=== PATIENT | female | born 1930 | race Two or more races ===

== ENCOUNTER 2019-04-05 19:25 | Inpatient (IN) | payer MEDICARE, OTHER ==
[~2019-04-05] VITALS: Ht 154.9 cm; Wt 70.3 kg
[2019-04-05] MEDS ORDERED: ACET-2154 PO (20:07)
[2019-04-05] MEDS ORDERED: GABA-534 PO (20:07)
[2019-04-05] MEDS ORDERED: HYOS0.1275 SL (20:07)
[2019-04-05] MEDS ORDERED: FURO40TA5 PO (20:07)
[2019-04-05] MEDS ORDERED: IPRA12.9 NEB (20:07)
[2019-04-05] MEDS ORDERED: PRAM0.253 PO (20:07)
[2019-04-05] MEDS ORDERED: TOPI50TA24 PO (20:07)
[2019-04-05] MEDS ORDERED: TOPI100T38 PO (20:07)
[2019-04-05 20:27] VITALS: BP 140/65
[2019-04-05] MEDS ORDERED: PRAMIPEXOLE 0.25 MG TABLET PO SCH (21:00)
[2019-04-05] MEDS ORDERED: HYOSCYAMINE SULFATE 0.125 MG TABLET SL PRN (21:00)
[2019-04-05] MEDS ORDERED: ACETAMINOPHEN 325 MG TABLET PO PRN (21:00)
[2019-04-05] MEDS: TOPIRAMATE 100 MG TABLET PO SCH (21:11)
[2019-04-05] MEDS: PRAMIPEXOLE 1 MG TABLET PO SCH (21:11)
--- NOTE | 2019-04-05 23:48 | NUR ---
Pt arrived in the unit at 1935 via gurney. Family at bedside. On 3L O2 via NC. No acute distress noted. Denies pain/ discomfort. Pertinent assessment done. MRSA swab sent to the lab. Oriented pt to the unit and equipment. Dr. Allyson Webb and Dr. Dawn notified of admission. Med recon done. Pt's family has concerns regarding home meds, MD Webb aware and will see pt tomorrow. Pt is on fall and seizure precaution. Safety measures maintained. Call light and personal items within reach. Will continue to monitor.
[2019-04-06] MEDS: IPRATROPIUM BROMIDE 0.5 MG/2.5 ML NEBU NEB SCH ×4 (01:09→20:07)
[2019-04-06 04:55] VITALS: BP 126/66
[2019-04-06 08:01] VITALS: BP 127/58
[2019-04-06] MEDS ORDERED: LOSARTAN POTASSIUM 25 MG TABLET PO SCH (09:00)
[2019-04-06] MEDS ORDERED: FUROSEMIDE 40 MG TABLET PO SCH ×2 (09:00→09:40)
[2019-04-06] MEDS: TOPIRAMATE 25 MG TABLET PO SCH (09:38)
[2019-04-06] MEDS: GABAPENTIN 300 MG CAPSULE PO SCH ×3 (09:38→16:38)
[2019-04-06] MEDS: FOLIC ACID 1 MG TABLET PO SCH (09:56)
[2019-04-06] MEDS: ESCITALOPRAM OXALATE 10 MG TABLET PO SCH (09:56)
[2019-04-06] MEDS: LIPASE/PROTEASE/AMYLASE 4200 UNITS CAPSULE.DR PO SCH ×2 (11:38→16:38)
[2019-04-06] MEDS: GABAPENTIN 100 MG CAPSULE PO SCH ×4 (11:38→20:19)
[2019-04-06] MEDS: FLUTICASONE PROP NASAL SPRAY 16 GM BOTTLE NS SCH (13:10)
--- NOTE | 2019-04-06 14:41 | NUR ---
Patient started therapy for ambulation and ADL. no complaint of pain/discomfort noted. Seen and examined by MD Macias. Med recon done by . not in distress. will continue monitor
[2019-04-06 15:42] VITALS: BP 123/73
[2019-04-06] MEDS: PHENOBARBITAL 32.4 MG TABLET PO SCH (20:18)
[2019-04-06] MEDS: PRAMIPEXOLE 1 MG TABLET PO SCH (20:18)
[2019-04-06] MEDS: BIMATOPROST 0.01% EACHEYE SCH (20:18)
[2019-04-06] MEDS: LOSARTAN POTASSIUM 25 MG TABLET PO SCH (20:19)
[2019-04-06] MEDS: TOPIRAMATE 100 MG TABLET PO SCH (20:19)
[2019-04-06 20:36] VITALS: BP 133/59
--- NOTE | 2019-04-06 20:41 | NUR ---
Received pt resting in bed. AAO x3. Farsi speaking, able to make needs known. No acute distress noted. Denies pain/ discomfort. Due meds given as ordered. Received breathing tx. Safety measures maintained. Call light and personal items within reach. Will continue to monitor.
[2019-04-07] MEDS: IPRATROPIUM BROMIDE 0.5 MG/2.5 ML NEBU NEB SCH ×4 (01:10→19:00)
[2019-04-07 05:38] VITALS: BP 119/70
[2019-04-07] MEDS: PANTOPRAZOLE SODIUM 40 MG TABLET.DR PO SCH (06:12)
[2019-04-07] MEDS: LEVOTHYROXINE SODIUM 50 MCG TABLET PO SCH (06:12)
[2019-04-07 07:44] VITALS: BP 125/54
[2019-04-07] MEDS: FOLIC ACID 1 MG TABLET PO SCH (08:22)
[2019-04-07] MEDS: GABAPENTIN 300 MG CAPSULE PO SCH ×3 (08:23→17:04)
[2019-04-07] MEDS: ESCITALOPRAM OXALATE 10 MG TABLET PO SCH (08:23)
[2019-04-07] MEDS: TOPIRAMATE 25 MG TABLET PO SCH (08:23)
[2019-04-07] MEDS: LIPASE/PROTEASE/AMYLASE 4200 UNITS CAPSULE.DR PO SCH ×3 (08:24→17:04)
[2019-04-07] MEDS: LOSARTAN POTASSIUM 25 MG TABLET PO SCH ×2 (08:25→20:11)
[2019-04-07] MEDS: GABAPENTIN 100 MG CAPSULE PO SCH ×4 (08:28→20:11)
[2019-04-07] MEDS: FLUTICASONE PROP NASAL SPRAY 16 GM BOTTLE NS SCH (08:28)
[2019-04-07 16:29] VITALS: BP 121/62
--- NOTE | 2019-04-07 18:53 | NUR ---
Patient is A & O x 3; Farsi speaking. No SOB noted. Pt. on O2 NC at 1LPM with O2 saturation of 97%. Vital signs taken and stable. No complains of pain throughout shift. Pt. on routine breathing treatment. Due medications administered as ordered and scheduled and tolerated well. Continued with PT/OT services. Needs attended, safety measurers in place, call light left at bed side, endorsed to next shift and will continue with care.
--- NOTE | 2019-04-07 19:30 | NUR ---
Alert and oriented x 4. Farsi speaking primarily, but able to make needs known in Portuguese. No C/O pain or SOB at this time. Family at bedside upon assessment. Call light and frequently used items within reach. Side rails up bilaterally. Will continue to monitor.
[2019-04-07] MEDS: BIMATOPROST 0.01% EACHEYE SCH (20:11)
[2019-04-07] MEDS: TOPIRAMATE 100 MG TABLET PO SCH (20:11)
[2019-04-07] MEDS: PRAMIPEXOLE 1 MG TABLET PO SCH (20:11)
[2019-04-07] MEDS: PHENOBARBITAL 32.4 MG TABLET PO SCH (20:11)
[2019-04-07 20:42] VITALS: BP 102/70
[2019-04-08] MEDS: IPRATROPIUM BROMIDE 0.5 MG/2.5 ML NEBU NEB SCH ×4 (00:33→21:28)
[2019-04-08 05:28] VITALS: BP 108/54
[2019-04-08] MEDS: LEVOTHYROXINE SODIUM 50 MCG TABLET PO SCH (06:00)
[2019-04-08] MEDS: PANTOPRAZOLE SODIUM 40 MG TABLET.DR PO SCH (06:00)
[2019-04-08] MEDS: LIPASE/PROTEASE/AMYLASE 4200 UNITS CAPSULE.DR PO SCH ×3 (06:32→17:03)
[2019-04-08 07:50] VITALS: BP 134/54
[2019-04-08] MEDS: TOPIRAMATE 25 MG TABLET PO SCH (09:24)
[2019-04-08] MEDS: GABAPENTIN 100 MG CAPSULE PO SCH ×4 (09:24→20:19)
[2019-04-08] MEDS: GABAPENTIN 300 MG CAPSULE PO SCH ×3 (09:24→17:04)
[2019-04-08] MEDS: LOSARTAN POTASSIUM 25 MG TABLET PO SCH ×2 (09:25→20:20)
[2019-04-08] MEDS: FUROSEMIDE 40 MG TABLET PO SCH (09:25)
[2019-04-08] MEDS: FOLIC ACID 1 MG TABLET PO SCH (09:25)
[2019-04-08] MEDS: ESCITALOPRAM OXALATE 10 MG TABLET PO SCH (09:25)
[2019-04-08] MEDS: FLUTICASONE PROP NASAL SPRAY 16 GM BOTTLE NS SCH (09:26)
--- NOTE | 2019-04-08 10:00 | NUR ---
Received patient in room, awake in bed. NO acute distress noted. Breathing even and unlabored in O2 NC at 1lpm with O2 saturation of 98%. No complains of pain at this time. No new change of condition noted. Vital signs taken and stable. Due medications administered and tolerated well. Daughter at bed side. patient on PT/OT services. Needs attended, safety measures in place and will continue with care.
--- NOTE | 2019-04-08 14:12 | NUR ---
INTERDISCIPLINARY TEAM CONFERENCE
--- NOTE | 2019-04-08 15:31 | NUR ---
INDIVIDUALIZE OVERALL PLAN OF CARE
[2019-04-08 16:34] VITALS: BP 98/50
--- NOTE | 2019-04-08 19:30 | NUR ---
Received patient in bed. AAO x4. Not in acute distress or SOB. Farsi speaking, but can communicate in Swedish. Able to make needs known. On 1 L O2 via NC. No Complain of pain at this time. Physical assessment done. Fall prevention observed. Safety measures maintained. Bed in low and lock position, alarm on, side rails up x2 for safety. Call light and frequently used items within reach. Continue to monitor.
[2019-04-08 19:48] VITALS: BP 130/52
--- NOTE | 2019-04-08 20:15 | NUR ---
Patient stable, No new change of condition noted, needs attended. Endorsed to next shift and will continue with care.
[2019-04-08] MEDS: PRAMIPEXOLE 1 MG TABLET PO SCH (20:19)
[2019-04-08] MEDS: TOPIRAMATE 100 MG TABLET PO SCH (20:19)
[2019-04-08] MEDS: BIMATOPROST 0.01% EACHEYE SCH (20:19)
[2019-04-08] MEDS: PHENOBARBITAL 32.4 MG TABLET PO SCH (20:20)
[2019-04-09] MEDS: IPRATROPIUM BROMIDE 0.5 MG/2.5 ML NEBU NEB SCH ×4 (01:30→21:00)
[2019-04-09 05:15] VITALS: BP 120/68
[2019-04-09 05:28] VITALS: BP 120/68
--- NOTE | 2019-04-09 05:54 | NUR ---
Patient was stable during the shift and had a good sleep last night. Not in acute distress or SOB. On room air. All due medications given as ordered and well tolerated. All needs attended promptly. Physical assessment done. Fall prevention observed. Safety measures maintained. Bed in low and lock position, alarm on, side rails up x2 for safety. Call light and frequently used items within reach. Continue to monitor and will endorse to the day shift nurse accordingly.
[2019-04-09] MEDS: PANTOPRAZOLE SODIUM 40 MG TABLET.DR PO SCH (06:34)
[2019-04-09] MEDS: LIPASE/PROTEASE/AMYLASE 4200 UNITS CAPSULE.DR PO SCH ×3 (06:34→16:57)
[2019-04-09] MEDS: LEVOTHYROXINE SODIUM 50 MCG TABLET PO SCH (06:34)
[2019-04-09 08:00] VITALS: BP 119/54
[2019-04-09] MEDS: GABAPENTIN 300 MG CAPSULE PO SCH ×3 (08:29→17:45)
[2019-04-09] MEDS: FOLIC ACID 1 MG TABLET PO SCH (08:29)
[2019-04-09] MEDS: LOSARTAN POTASSIUM 25 MG TABLET PO SCH ×2 (08:30→21:01)
[2019-04-09] MEDS: ESCITALOPRAM OXALATE 10 MG TABLET PO SCH (08:30)
[2019-04-09] MEDS: FLUTICASONE PROP NASAL SPRAY 16 GM BOTTLE NS SCH (08:30)
[2019-04-09] MEDS: GABAPENTIN 100 MG CAPSULE PO SCH ×4 (08:31→21:01)
[2019-04-09] MEDS: TOPIRAMATE 25 MG TABLET PO SCH (08:31)
--- NOTE | 2019-04-09 11:18 | NUR ---
PATIENT IS ALERT, ORIENTED X3, FARSI SPEAKING, DAUGHTER BEDSIDE, NO DISTRESS NOTED, PATIENT DAUGHTER REQUESTED LEXAPRO TO BE GIVEN AT NIGHT, APPROVED WITH MD, STARTED ON COLACE, AND ARTIFICIAL EYE DROPS.
--- NOTE | 2019-04-09 16:17 | NUR ---
PATIENT IS ALERT, ORIENTED X3, FARSI SPEAKING, NO DISTRESS NOTED, NEEDS ATTENDED TIMELY, REPOSITIONED, KEPT CLEAN DRY. CALL LIGHT WITH IN REACH
[2019-04-09 16:40] VITALS: BP 101/62
[2019-04-09] MEDS: POLYVINYL ALCOHOL OPHT DROPS 15 ML BOTTLE EACHEYE SCH (17:46)
[2019-04-09 19:48] VITALS: BP 123/54
[2019-04-09] MEDS: BIMATOPROST 0.01% EACHEYE SCH (21:00)
[2019-04-09] MEDS: PRAMIPEXOLE 1 MG TABLET PO SCH (21:00)
[2019-04-09] MEDS: DOCUSATE SODIUM 100 MG CAPSULE PO SCH (21:00)
[2019-04-09] MEDS: TOPIRAMATE 100 MG TABLET PO SCH (21:01)
[2019-04-09] MEDS: PHENOBARBITAL 32.4 MG TABLET PO SCH (21:01)
--- NOTE | 2019-04-09 22:43 | NUR ---
Received pt resting in bed. AAO x3. Farsi speaking, able to make needs known. Son at bedside. No acute distress noted. Denies pain/ discomfort. Due meds given as ordered. Safety measures maintained. Call light and personal items within reach. Will continue to monitor.
[2019-04-10] MEDS: IPRATROPIUM BROMIDE 0.5 MG/2.5 ML NEBU NEB SCH ×4 (03:30→20:59)
[2019-04-10 04:40] VITALS: BP 121/41
[2019-04-10 05:47] LABS: BASOPHILS % (AUTO) 0.6 % (0.0-2.0); EOSINOPHILS # (AUTO) 0.1 K/uL (0.0-0.7); EOSINOPHILS % (AUTO) 3.3 % (0.0-7.0); HEMATOCRIT 31.8 % (31.2-41.9); HEMOGLOBIN 10.4 g/dL (10.9-14.3); LYMPHOCYTES # (AUTO) 1.3 K/uL (20.0-40.0); LYMPHOCYTES % (AUTO) 32.5 % (20.5-51.5); MEAN CORPUSCULAR HEMOGLOBIN 29.4 uug (24.7-32.8); MEAN CORPUSCULAR HGB CONC 33 g/dL (32.3-35.6); MEAN CORPUSCULAR VOLUME 90.2 fL (75.5-95.3); MONOCYTES # (AUTO) 0.3 K/uL (2.0-10.0); MONOCYTES % (AUTO) 7.7 % (0.0-11.0); NEUTROPHILS # (AUTO) 2.3 K/uL (1.8-8.9); NEUTROPHILS % (AUTO) 55.9 % (38.5-71.5); PLATELET COUNT (AUTO) 384 K/uL (179-408); RED BLOOD CELL COUNT(AUTO) 3.52 MIL/uL (3.63-4.92)
[2019-04-10 05:54] LABS: BILIRUBIN,TOTAL 0.3 mg/dL (0.2-1.0); CREATININE 0.6 mg/dL (0.6-1.3); MAGNESIUM 1.9 mg/dL (1.8-2.4); PHOSPHOROUS 3.5 mg/dL (2.5-4.9); POTASSIUM 3.8 mmol/L (3.5-5.1); TOTAL PROTEIN, SERUM 6.8 g/dL (6.4-8.2)
[2019-04-10] MEDS: PANTOPRAZOLE SODIUM 40 MG TABLET.DR PO SCH (06:09)
[2019-04-10] MEDS: LEVOTHYROXINE SODIUM 50 MCG TABLET PO SCH (06:09)
[2019-04-10 08:00] VITALS: BP 125/51
[2019-04-10] MEDS: GABAPENTIN 100 MG CAPSULE PO SCH ×4 (08:34→20:14)
[2019-04-10] MEDS: POLYVINYL ALCOHOL OPHT DROPS 15 ML BOTTLE EACHEYE SCH ×2 (08:34→17:23)
[2019-04-10] MEDS: FLUTICASONE PROP NASAL SPRAY 16 GM BOTTLE NS SCH (08:34)
[2019-04-10] MEDS: LORATADINE 10 MG TABLET PO PRN (08:35)
[2019-04-10] MEDS: TOPIRAMATE 25 MG TABLET PO SCH (08:35)
[2019-04-10] MEDS: LIPASE/PROTEASE/AMYLASE 4200 UNITS CAPSULE.DR PO SCH ×3 (08:35→17:23)
[2019-04-10] MEDS: FOLIC ACID 1 MG TABLET PO SCH (08:37)
[2019-04-10] MEDS: FUROSEMIDE 40 MG TABLET PO SCH (08:37)
[2019-04-10] MEDS: LOSARTAN POTASSIUM 25 MG TABLET PO SCH ×2 (08:37→20:15)
[2019-04-10] MEDS: DOCUSATE SODIUM 100 MG CAPSULE PO SCH ×2 (08:38→20:13)
[2019-04-10] MEDS: GABAPENTIN 300 MG CAPSULE PO SCH ×3 (08:38→17:26)
[2019-04-10 17:20] VITALS: BP 98/46
[2019-04-10] MEDS: ESCITALOPRAM OXALATE 10 MG TABLET PO SCH (20:12)
[2019-04-10] MEDS: TOPIRAMATE 100 MG TABLET PO SCH (20:15)
[2019-04-10] MEDS: PRAMIPEXOLE 1 MG TABLET PO SCH (20:15)
[2019-04-10] MEDS: PHENOBARBITAL 32.4 MG TABLET PO SCH (20:15)
[2019-04-10] MEDS: BIMATOPROST 0.01% EACHEYE SCH (20:17)
--- NOTE | 2019-04-10 20:42 | NUR ---
Received pt resting in bed and reading a book. AAO x3. Farsi speaking, able to make needs known. On 1 LPM O2 via NC, tolerating well. No acute distress noted. Denies pain/ discomfort. Due meds given as ordered. Safety measures maintained. Call light and personal items within reach. Will continue to monitor.
[2019-04-10 21:28] VITALS: BP 129/63
[2019-04-11] MEDS: IPRATROPIUM BROMIDE 0.5 MG/2.5 ML NEBU NEB SCH ×4 (01:30→19:32)
[2019-04-11 05:13] VITALS: BP 111/61
[2019-04-11] MEDS: LEVOTHYROXINE SODIUM 50 MCG TABLET PO SCH (06:11)
[2019-04-11] MEDS: PANTOPRAZOLE SODIUM 40 MG TABLET.DR PO SCH (06:11)
[2019-04-11 07:30] VITALS: BP 127/50
[2019-04-11] MEDS: FOLIC ACID 1 MG TABLET PO SCH (09:30)
[2019-04-11] MEDS: GABAPENTIN 300 MG CAPSULE PO SCH ×3 (09:30→16:59)
[2019-04-11] MEDS: LOSARTAN POTASSIUM 25 MG TABLET PO SCH ×2 (09:30→20:21)
[2019-04-11] MEDS: GABAPENTIN 100 MG CAPSULE PO SCH ×4 (09:30→20:21)
[2019-04-11] MEDS: DOCUSATE SODIUM 100 MG CAPSULE PO SCH ×2 (09:30→20:20)
[2019-04-11] MEDS: POLYVINYL ALCOHOL OPHT DROPS 15 ML BOTTLE EACHEYE SCH ×2 (09:31→17:00)
[2019-04-11] MEDS: LIPASE/PROTEASE/AMYLASE 4200 UNITS CAPSULE.DR PO SCH ×3 (09:31→17:00)
[2019-04-11] MEDS: TOPIRAMATE 25 MG TABLET PO SCH (09:32)
[2019-04-11] MEDS: FLUTICASONE PROP NASAL SPRAY 16 GM BOTTLE NS SCH (09:33)
[2019-04-11 16:00] VITALS: BP 144/59
--- NOTE | 2019-04-11 19:35 | NUR ---
Received patient sitting in chair. AAO x4. Not in acute distress or SOB. Farsi speaking, but can communicate in Sami. Her daughter at the bedside. Able to make needs known. On 1 L O2 via NC. No Complain of pain at this time. Physical assessment done. Fall prevention observed. Safety measures maintained. Bed in low and lock position, alarm on, side rails up x2 for safety. Call light and frequently used items within reach. Continue to monitor.
[2019-04-11 20:03] VITALS: BP 121/49
[2019-04-11] MEDS: BIMATOPROST 0.01% EACHEYE SCH (20:20)
[2019-04-11] MEDS: TOPIRAMATE 100 MG TABLET PO SCH (20:21)
[2019-04-11] MEDS: ESCITALOPRAM OXALATE 10 MG TABLET PO SCH (20:21)
[2019-04-11] MEDS: PHENOBARBITAL 32.4 MG TABLET PO SCH (20:22)
[2019-04-11] MEDS: PRAMIPEXOLE 1 MG TABLET PO SCH (20:22)
[2019-04-12] MEDS: IPRATROPIUM BROMIDE 0.5 MG/2.5 ML NEBU NEB SCH ×4 (01:04→19:12)
--- NOTE | 2019-04-12 04:29 | NUR ---
End of the shift note: Patient was stable during the shift and had a good sleep last night. Not in acute distress or SOB. On 1 L O2 via NC. All due medications given as ordered and well tolerated. All needs attended promptly. Physical assessment done. Fall prevention observed. Safety measures maintained. Bed in low and lock position, alarm on, side rails up x2 for safety. Call light and frequently used items within reach. Continue to monitor and will endorse to the day shift nurse accordingly.
[2019-04-12 05:29] VITALS: BP 125/55
[2019-04-12] MEDS: LEVOTHYROXINE SODIUM 50 MCG TABLET PO SCH (06:13)
[2019-04-12] MEDS: PANTOPRAZOLE SODIUM 40 MG TABLET.DR PO SCH (06:13)
[2019-04-12] MEDS: LIPASE/PROTEASE/AMYLASE 4200 UNITS CAPSULE.DR PO SCH ×3 (06:43→17:14)
[2019-04-12] MEDS ORDERED: Z GUARD REMEDY PASTE 57 GM TUBE TOP PRN (07:30)
[2019-04-12 08:56] VITALS: BP 107/50
[2019-04-12] MEDS: LOSARTAN POTASSIUM 25 MG TABLET PO SCH ×2 (09:00→20:36)
[2019-04-12] MEDS: FOLIC ACID 1 MG TABLET PO SCH (09:56)
[2019-04-12] MEDS: DOCUSATE SODIUM 100 MG CAPSULE PO SCH ×2 (09:56→20:36)
[2019-04-12] MEDS: FUROSEMIDE 40 MG TABLET PO SCH (09:57)
[2019-04-12] MEDS: GABAPENTIN 300 MG CAPSULE PO SCH ×3 (09:57→17:13)
[2019-04-12] MEDS: FLUTICASONE PROP NASAL SPRAY 16 GM BOTTLE NS SCH (09:59)
[2019-04-12] MEDS: GABAPENTIN 100 MG CAPSULE PO SCH ×4 (09:59→20:37)
[2019-04-12] MEDS: TOPIRAMATE 25 MG TABLET PO SCH (09:59)
--- NOTE | 2019-04-12 10:00 | NUR ---
Patient awake, alert, not in any form of distress. She denies any pain or discomfort at this time. due medications administered and tolerated well. Needs attended to promptly. Call light and frequently used items placed within reach.
[2019-04-12] MEDS: POLYVINYL ALCOHOL OPHT DROPS 15 ML BOTTLE EACHEYE SCH ×2 (10:16→17:13)
--- NOTE | 2019-04-12 13:30 | NUR ---
NEB TX NOT GIVEN PT OUT OF ROOM
[2019-04-12 16:16] VITALS: BP 136/54
[2019-04-12 20:17] VITALS: BP 126/60
[2019-04-12] MEDS: ESCITALOPRAM OXALATE 10 MG TABLET PO SCH (20:36)
[2019-04-12] MEDS: PHENOBARBITAL 32.4 MG TABLET PO SCH (20:36)
[2019-04-12] MEDS: TOPIRAMATE 100 MG TABLET PO SCH (20:37)
[2019-04-12] MEDS: BIMATOPROST 0.01% EACHEYE SCH (20:37)
[2019-04-12] MEDS: PRAMIPEXOLE 1 MG TABLET PO SCH (20:38)
--- NOTE | 2019-04-12 21:32 | NUR ---
received patient OOB in chair upon initial rounds. AAOx3-4 Needs attended. VSS. On 1L O2 via nasal cannula, pulse ox 91%. Respiratory treatment given by therapist on scheduled times. Assisted back in bed with moderate assistance. Bedtime care done. Incontinent of bowel and bladder. Kept clean and dry. No BM noted this shift. Tolerated po meds well. Fall precautions maintained. Call evangelista within reach. Siderails up for safety.
[2019-04-13] MEDS: IPRATROPIUM BROMIDE 0.5 MG/2.5 ML NEBU NEB SCH ×4 (01:00→20:30)
[2019-04-13 05:18] VITALS: BP 130/69
[2019-04-13] MEDS: LEVOTHYROXINE SODIUM 50 MCG TABLET PO SCH (06:25)
[2019-04-13] MEDS: PANTOPRAZOLE SODIUM 40 MG TABLET.DR PO SCH (06:25)
[2019-04-13] MEDS: LIPASE/PROTEASE/AMYLASE 4200 UNITS CAPSULE.DR PO SCH ×3 (06:31→16:51)
--- NOTE | 2019-04-13 06:46 | NUR ---
slept well most of the shift. denies any pain nor any discomfort. VSS. incontinent of urine x2. kept clean and dry. making needs known. fall precautions maintained.
[2019-04-13 08:00] VITALS: BP 163/63
[2019-04-13] MEDS: FLUTICASONE PROP NASAL SPRAY 16 GM BOTTLE NS SCH (09:45)
[2019-04-13] MEDS: POLYVINYL ALCOHOL OPHT DROPS 15 ML BOTTLE EACHEYE SCH ×2 (09:45→17:07)
[2019-04-13] MEDS: GABAPENTIN 300 MG CAPSULE PO SCH ×3 (09:45→17:07)
[2019-04-13] MEDS: GABAPENTIN 100 MG CAPSULE PO SCH ×4 (09:45→20:47)
[2019-04-13] MEDS: TOPIRAMATE 25 MG TABLET PO SCH (09:45)
[2019-04-13] MEDS: DOCUSATE SODIUM 100 MG CAPSULE PO SCH ×2 (09:46→20:53)
[2019-04-13] MEDS: LOSARTAN POTASSIUM 25 MG TABLET PO SCH ×2 (09:46→20:46)
[2019-04-13] MEDS: FOLIC ACID 1 MG TABLET PO SCH (09:46)
[2019-04-13 16:00] VITALS: BP 137/53
--- NOTE | 2019-04-13 18:09 | NUR ---
Patient is Alert and Oriented x3. Mostly Farsi speaking. No acute distress noted. Breathing even and unlabored. Vital signs taken and stable. Family at bed side for most of the shift. Due medications administered as ordered and scheduled. Tolerated well. Patient in stable condition. No complains of pain throughout shift. Needs attended, safety measures in place, skin kept clean and dry, patient also with BRP with a walker and 1 person assist; made comfortable, call light left at bed side and will continue with care.
--- NOTE | 2019-04-13 19:06 | NUR ---
Patient noted with redness and itchiness on perineal area. Paged lead solutions architect VIP MD Dr. Webb and left a message endorsed to next shift to follow up with care.
[2019-04-13 19:48] VITALS: BP 122/69
--- NOTE | 2019-04-13 19:53 | NUR ---
OOB in chair upon initial rounds. aaox3. Ambulates to the BR with walker with supervision. Needs attended. Voiding well. Uses diaper at night. Assisted back in bed. VSS No acute distress noted. Tolerated po meds well. Denies any pain nor any itching noted. Will monitor patient. Fall precautions maintained. Call evangelista within reach. Siderails up for safety.
[2019-04-13] MEDS: ESCITALOPRAM OXALATE 10 MG TABLET PO SCH (20:45)
[2019-04-13] MEDS: PHENOBARBITAL 32.4 MG TABLET PO SCH (20:45)
[2019-04-13] MEDS: BIMATOPROST 0.01% EACHEYE SCH (20:46)
[2019-04-13] MEDS: PRAMIPEXOLE 1 MG TABLET PO SCH (20:47)
[2019-04-13] MEDS: TOPIRAMATE 100 MG TABLET PO SCH (20:47)
[2019-04-14] MEDS: IPRATROPIUM BROMIDE 0.5 MG/2.5 ML NEBU NEB SCH ×4 (02:05→21:45)
[2019-04-14 05:40] VITALS: BP 105/56
--- NOTE | 2019-04-14 06:31 | NUR ---
slept well during the night. no acute distress noted.needs attended. incontinent of urine x2. kept clean and dry. VSS. will monitor patient.
[2019-04-14] MEDS: PANTOPRAZOLE SODIUM 40 MG TABLET.DR PO SCH (06:43)
[2019-04-14] MEDS: LIPASE/PROTEASE/AMYLASE 4200 UNITS CAPSULE.DR PO SCH ×3 (06:44→16:48)
[2019-04-14] MEDS: LEVOTHYROXINE SODIUM 50 MCG TABLET PO SCH (06:44)
[2019-04-14] MEDS: FOLIC ACID 1 MG TABLET PO SCH (08:42)
[2019-04-14] MEDS: FUROSEMIDE 40 MG TABLET PO SCH (08:42)
[2019-04-14] MEDS: GABAPENTIN 300 MG CAPSULE PO SCH ×3 (08:42→16:47)
[2019-04-14] MEDS: DOCUSATE SODIUM 100 MG CAPSULE PO SCH ×2 (08:42→20:55)
[2019-04-14] MEDS: GABAPENTIN 100 MG CAPSULE PO SCH ×4 (08:43→20:55)
[2019-04-14] MEDS: LORATADINE 10 MG TABLET PO PRN (08:43)
[2019-04-14] MEDS: LOSARTAN POTASSIUM 25 MG TABLET PO SCH ×2 (08:44→20:54)
[2019-04-14] MEDS: TOPIRAMATE 25 MG TABLET PO SCH (08:44)
[2019-04-14] MEDS: FLUTICASONE PROP NASAL SPRAY 16 GM BOTTLE NS SCH (08:45)
[2019-04-14] MEDS: POLYVINYL ALCOHOL OPHT DROPS 15 ML BOTTLE EACHEYE SCH ×2 (08:45→16:49)
[2019-04-14 11:45] VITALS: BP 128/68
--- NOTE | 2019-04-14 14:32 | NUR ---
PATIENT AND PATIENT DAUGHTER ARE OVERCONCERNED ABOUT CLEANING STUFF, PATIENT WOULD CLEAN AGAIN EVERY THING EVEN IT IS JUST CLEANED INFORNT OF PATIENT, OVER CONCERNED ABOUT DRYING WELL, PATIENT DAUGHTER INSISTS, DRYING EVERYTHING OVER AND OVER, PATIENT DAUGHTER NOTED CLEANING THE TABLES, CHAIR, FWW, AND OTHER STUFF IN THE ROOM AGAIN AND AGAIN. ROOM WAS CLEANED AND WIPED WITH BLEACH BY BY EVS DEPARTMENT. PATIENT WAS ASSISTED TO THE BATHROOM, CLEANED WELL, AND PAT DRY WELL WITH WASH CLOTHES, HOWEVER PATIENT WAS NOT HAPPY ABOUT IT AND WANTED TO CLEAN HERSELF AGAIN, WASH CLOTH PROVIDED TO PATIENT. PATIENT DAUGHTER REINFORCES EVERY TIME NURSE TAKES PATIENT TO BATHROOM, "MAKE SURE YOU GUYS DRY MY MOM AFTER CLEANING VERY WELL, MAKE SURE MY MOM'S PANT IS NOT TOUCHING THE TOILET, MAKE SURE SIDE BAR IS WIPED" REASSURED DAUGHTER THAT PATIENT IS CLEANED AND DRIED WELL. PATIENT DID NOT WANT TO TOUCH THE SIDE RAILS IN THE REHAB, DOES NOT WANT HER STUFF TO BE TOUCHED WITH NAKED HANDS. REASSURED THAT STAFF WASHES AND SANITIZES THE HANDS WELL ALL THE TIME.
[2019-04-14 18:00] VITALS: BP 122/70
--- NOTE | 2019-04-14 19:40 | NUR ---
patient is in bed, no distress noted, clean and dry
[2019-04-14 20:07] VITALS: BP 120/63
--- NOTE | 2019-04-14 20:11 | NUR ---
resting in bed upon rounds. aaox3-4 VSS on continous O2 @ 1L via nasal cannula. pulse ox 97% on 1L O2. needs attended. kept comfortable. will monitor patient. no acute distress noted. fall precautions maintained. siderails up for safety. Call evangelista within reach. Bedtime care done. Incontinent of bowel and bladder. kept clean and dry. No BM noted this shift. Tolerated po meds well without difficulty.
[2019-04-14] MEDS: PHENOBARBITAL 32.4 MG TABLET PO SCH (20:54)
[2019-04-14] MEDS: PRAMIPEXOLE 1 MG TABLET PO SCH (20:55)
[2019-04-14] MEDS: ESCITALOPRAM OXALATE 10 MG TABLET PO SCH (20:55)
[2019-04-14] MEDS: TOPIRAMATE 100 MG TABLET PO SCH (20:56)
[2019-04-14] MEDS: BIMATOPROST 0.01% EACHEYE SCH (20:56)
[2019-04-15] MEDS: IPRATROPIUM BROMIDE 0.5 MG/2.5 ML NEBU NEB SCH ×4 (01:30→18:01)
[2019-04-15 05:37] VITALS: BP 113/68
--- NOTE | 2019-04-15 05:47 | NUR ---
slept well throughout the night. denies any pain nor any discomfort. incontinent of urine x2. kept clean and dry. kept comfortable. On O2 @1L via nasal cannula. VSS. siderails up for safety.
[2019-04-15] MEDS: LEVOTHYROXINE SODIUM 50 MCG TABLET PO SCH (06:32)
[2019-04-15] MEDS: PANTOPRAZOLE SODIUM 40 MG TABLET.DR PO SCH (06:33)
[2019-04-15] MEDS: LIPASE/PROTEASE/AMYLASE 4200 UNITS CAPSULE.DR PO SCH ×3 (06:33→17:11)
--- NOTE | 2019-04-15 06:59 | NUR ---
PATIENT IS IN BED, ASLEEP, NO SOB, RESP EVEN NONLABORED,NO DISTRESS NOTED
[2019-04-15] MEDS: GABAPENTIN 300 MG CAPSULE PO SCH ×3 (08:32→17:00)
[2019-04-15] MEDS: DOCUSATE SODIUM 100 MG CAPSULE PO SCH ×2 (08:32→21:30)
[2019-04-15] MEDS: FOLIC ACID 1 MG TABLET PO SCH (08:32)
[2019-04-15] MEDS: LOSARTAN POTASSIUM 25 MG TABLET PO SCH ×2 (08:33→21:31)
[2019-04-15] MEDS: GABAPENTIN 100 MG CAPSULE PO SCH ×4 (08:33→21:30)
[2019-04-15] MEDS: TOPIRAMATE 25 MG TABLET PO SCH (08:34)
[2019-04-15] MEDS: FLUTICASONE PROP NASAL SPRAY 16 GM BOTTLE NS SCH (08:35)
[2019-04-15] MEDS: POLYVINYL ALCOHOL OPHT DROPS 15 ML BOTTLE EACHEYE SCH ×2 (08:35→17:12)
--- NOTE | 2019-04-15 09:00 | NUR ---
PATIENT NOTED WITH AUDIBLE WHEEZING, SOB, 02 SAT AT 1 LITER OF O2 IS 94%.NOTED WITH +2 PITTING EDEMA TO BOTH LOWER EXTREMITIES, MD OMALLEY IS AWARE, WITH ORDERS TO GIVE LASIX IV, AND STEROIDS IV. IV STARTED TO LEFT HAND 24 GAUZE, MEDS ADMINISTERED, CONTINUE TO MONITOR
[2019-04-15] MEDS ORDERED: IPRATROPIUM BROMIDE 0.5 MG/2.5 ML NEBU NEB PRN (09:30)
[2019-04-15] MEDS ORDERED: FUROSEMIDE 20 MG/2 ML VIAL IV ONE (09:45)
[2019-04-15] MEDS: ALBUTEROL SULFATE 1.25 MG/3 ML NEBU NEB PRN ×2 (10:14→18:01)
[2019-04-15] MEDS: methylPREDNISolone SOD SUCC 40 MG/ML VIAL IV SCH ×3 (10:31→21:34)
--- NOTE | 2019-04-15 15:43 | NUR ---
INTERDISCIPLINARY TEAM CONFERENCE
--- NOTE | 2019-04-15 19:16 | NUR ---
PATIENT SITTING IN THE WHEELCHAIR, NO WHEEZING NOTED, NO DISTRESS NOTED, RESP EVEN NONLABORED, SATURATING AT 97% AT O2 1L, FAIRLY PARTICIPATED IN PT, OT, PATIENT NOTED EASILY GETTING TIRED, ENCROUGHED TO TAKE REST PERIODS BETWEEN ACTIVITIES.CONTINUE TO MONITOR, ENDORSED ACCORDINGLY TO NEXT SHIFT
[2019-04-15] MEDS: BIMATOPROST 0.01% EACHEYE SCH (21:30)
[2019-04-15] MEDS: ESCITALOPRAM OXALATE 10 MG TABLET PO SCH (21:30)
[2019-04-15] MEDS: TOPIRAMATE 100 MG TABLET PO SCH (21:31)
[2019-04-15] MEDS: PRAMIPEXOLE 1 MG TABLET PO SCH (21:31)
[2019-04-15] MEDS: PHENOBARBITAL 32.4 MG TABLET PO SCH (21:31)
[2019-04-15 22:32] VITALS: BP 126/51
--- NOTE | 2019-04-15 23:37 | NUR ---
Received pt resting in bed. AAO x3. Farsi speaking, able to make needs known. Family at bedside. On 1LPM O2 via NC, tolerating well. No acute distress noted. Denies pain/discomfort. Due meds given as ordered. Safety measures maintained. Call light and personal items within reach. Will continue to monitor.
[2019-04-16] MEDS: IPRATROPIUM BROMIDE 0.5 MG/2.5 ML NEBU NEB SCH ×5 (01:12→20:00)
[2019-04-16 05:13] VITALS: BP 142/61
[2019-04-16] MEDS: LEVOTHYROXINE SODIUM 50 MCG TABLET PO SCH (06:01)
[2019-04-16] MEDS: methylPREDNISolone SOD SUCC 40 MG/ML VIAL IV SCH (06:01)
[2019-04-16] MEDS: PANTOPRAZOLE SODIUM 40 MG TABLET.DR PO SCH (06:01)
[2019-04-16 07:05] LABS: BASOPHILS % (AUTO) 0.3 % (0.0-2.0); EOSINOPHILS % (AUTO) 0.2 % (0.0-7.0); HEMOGLOBIN 10.1 g/dL (10.9-14.3); LYMPHOCYTES % (AUTO) 17.8 % (20.5-51.5); MEAN CORPUSCULAR HEMOGLOBIN 29.2 uug (24.7-32.8); MEAN CORPUSCULAR HGB CONC 33 g/dL (32.3-35.6); MEAN CORPUSCULAR VOLUME 90.1 fL (75.5-95.3); MONOCYTES # (AUTO) 0.3 K/uL (2.0-10.0); MONOCYTES % (AUTO) 6.1 % (0.0-11.0); NEUTROPHILS # (AUTO) 4.2 K/uL (1.8-8.9); NEUTROPHILS % (AUTO) 75.6 % (38.5-71.5); PLATELET COUNT (AUTO) 325 K/uL (179-408); RED BLOOD CELL COUNT(AUTO) 3.44 MIL/uL (3.63-4.92); WHITE BLOOD COUNT (AUTO) 5.6 K/uL (3.8-11.8)
[2019-04-16 07:27] LABS: CARBON DIOXIDE 32 mmol/L (21-32); CHLORIDE 99 mmol/L (98-107); CREATININE 0.5 mg/dL (0.6-1.3); GLUCOSE 89 mg/dL (74-106); MAGNESIUM 1.9 mg/dL (1.8-2.4); PHOSPHOROUS 3.2 mg/dL (2.5-4.9); POTASSIUM 4.5 mmol/L (3.5-5.1); UREA NITROGEN, BLOOD 16 mg/dL (7-18)
[2019-04-16 07:30] VITALS: BP 143/77
[2019-04-16] MEDS: FUROSEMIDE 40 MG TABLET PO SCH ×2 (08:41→12:14)
[2019-04-16] MEDS: LIPASE/PROTEASE/AMYLASE 4200 UNITS CAPSULE.DR PO SCH ×3 (08:41→17:26)
[2019-04-16] MEDS: FLUTICASONE PROP NASAL SPRAY 16 GM BOTTLE NS SCH (08:42)
[2019-04-16] MEDS: predniSONE 20 MG TABLET PO SCH (08:42)
[2019-04-16] MEDS: POLYVINYL ALCOHOL OPHT DROPS 15 ML BOTTLE EACHEYE SCH ×2 (08:42→17:26)
[2019-04-16] MEDS: DOCUSATE SODIUM 100 MG CAPSULE PO SCH ×2 (08:43→20:21)
[2019-04-16] MEDS: LOSARTAN POTASSIUM 25 MG TABLET PO SCH ×2 (08:43→20:22)
[2019-04-16] MEDS: GABAPENTIN 300 MG CAPSULE PO SCH ×3 (08:43→17:26)
[2019-04-16] MEDS: FOLIC ACID 1 MG TABLET PO SCH (08:43)
[2019-04-16] MEDS: GABAPENTIN 100 MG CAPSULE PO SCH ×4 (08:44→20:21)
[2019-04-16] MEDS: TOPIRAMATE 25 MG TABLET PO SCH (08:44)
[2019-04-16 16:12] VITALS: BP 141/72
--- NOTE | 2019-04-16 19:20 | NUR ---
Received patient in bed. AAO x4. Not in acute distress or SOB. Farsi speaking, but can communicate little Danish. Able to make needs known. On 1 L O2 via NC, tolerating well. No complain of pain at this time. Physical assessment done. Fall prevention observed. Safety measures maintained. Bed in low and lock position, alarm on, side rails up x2 for safety. Call light and frequently used items within reach. Will continue to monitor.
[2019-04-16] MEDS: PHENOBARBITAL 32.4 MG TABLET PO SCH (20:21)
[2019-04-16] MEDS: PRAMIPEXOLE 1 MG TABLET PO SCH (20:21)
[2019-04-16] MEDS: TOPIRAMATE 100 MG TABLET PO SCH (20:22)
[2019-04-16] MEDS: ESCITALOPRAM OXALATE 10 MG TABLET PO SCH (20:22)
[2019-04-16 20:26] VITALS: BP 169/75
[2019-04-16] MEDS: BIMATOPROST 0.01% EACHEYE SCH (21:17)
[2019-04-16] MEDS: Z GUARD REMEDY PASTE 57 GM TUBE TOP SCH (21:17)
[2019-04-16 21:26] VITALS: BP 133/71
[2019-04-17] MEDS: IPRATROPIUM BROMIDE 0.5 MG/2.5 ML NEBU NEB SCH ×4 (00:41→19:16)
[2019-04-17 05:27] VITALS: BP 138/63
[2019-04-17] MEDS: PANTOPRAZOLE SODIUM 40 MG TABLET.DR PO SCH (06:30)
[2019-04-17] MEDS: LEVOTHYROXINE SODIUM 50 MCG TABLET PO SCH (06:30)
[2019-04-17] MEDS: LIPASE/PROTEASE/AMYLASE 4200 UNITS CAPSULE.DR PO SCH ×3 (06:31→17:41)
--- NOTE | 2019-04-17 06:47 | NUR ---
Patient was stable during the shift and had a good sleep last night. Not in acute distress or SOB. On room air; tolerated well. All due medications given as ordered and well tolerated. All needs attended promptly. Physical assessment done. Fall prevention observed. Safety measures maintained. Bed in low and lock position, alarm on, side rails up x2 for safety. Call light and frequently used items within reach. Continue to monitor and will endorse to the day shift nurse accordingly.
[2019-04-17 07:30] VITALS: BP 129/54
[2019-04-17] MEDS: FUROSEMIDE 40 MG TABLET PO SCH (08:53)
[2019-04-17] MEDS: GABAPENTIN 300 MG CAPSULE PO SCH ×3 (08:53→17:41)
[2019-04-17] MEDS: DOCUSATE SODIUM 100 MG CAPSULE PO SCH ×2 (08:53→20:29)
[2019-04-17] MEDS: predniSONE 20 MG TABLET PO SCH (08:53)
[2019-04-17] MEDS: GABAPENTIN 100 MG CAPSULE PO SCH ×4 (08:54→20:30)
[2019-04-17] MEDS: TOPIRAMATE 25 MG TABLET PO SCH (08:55)
[2019-04-17] MEDS: FOLIC ACID 1 MG TABLET PO SCH (08:57)
[2019-04-17] MEDS: POLYVINYL ALCOHOL OPHT DROPS 15 ML BOTTLE EACHEYE SCH ×2 (08:57→17:41)
[2019-04-17] MEDS: FLUTICASONE PROP NASAL SPRAY 16 GM BOTTLE NS SCH (08:58)
[2019-04-17] MEDS: LOSARTAN POTASSIUM 25 MG TABLET PO SCH ×2 (09:01→20:30)
[2019-04-17] MEDS: Z GUARD REMEDY PASTE 57 GM TUBE TOP SCH ×2 (09:02→20:29)
[2019-04-17 16:00] VITALS: BP 146/64
[2019-04-17] MEDS: ESCITALOPRAM OXALATE 10 MG TABLET PO SCH (20:29)
[2019-04-17] MEDS: BIMATOPROST 0.01% EACHEYE SCH (20:29)
[2019-04-17] MEDS: PHENOBARBITAL 32.4 MG TABLET PO SCH (20:30)
[2019-04-17] MEDS: TOPIRAMATE 100 MG TABLET PO SCH (20:30)
[2019-04-17] MEDS: PRAMIPEXOLE 1 MG TABLET PO SCH (20:30)
[2019-04-17 23:01] VITALS: BP 140/59
[2019-04-18] MEDS: IPRATROPIUM BROMIDE 0.5 MG/2.5 ML NEBU NEB SCH ×4 (01:30→19:18)
[2019-04-18 04:00] VITALS: BP 123/57
--- NOTE | 2019-04-18 04:43 | NUR ---
Received patient in bed. AAO x4. Not in acute distress or SOB. Farsi speaking. Family at the bedside. Able to make needs known. On room air. No Complain of pain. A private director of healthcare systems stayed with her whole night. Patient was stable during the shift and has a good sleep last night. All due medication given and well tolerated. Physical assessment done. All needs attended promptly. Fall prevention observed. Safety measures maintained. Bed in low and lock position, alarm on, side rails up x2 for safety. Call light and frequently used items within reach. Continue to monitor and will endorse to the oncoming nurse accordingly.
[2019-04-18] MEDS: LEVOTHYROXINE SODIUM 50 MCG TABLET PO SCH (06:27)
[2019-04-18] MEDS: PANTOPRAZOLE SODIUM 40 MG TABLET.DR PO SCH (06:27)
[2019-04-18] MEDS: LIPASE/PROTEASE/AMYLASE 4200 UNITS CAPSULE.DR PO SCH ×3 (06:30→17:18)
[2019-04-18 07:47] VITALS: BP 107/45
[2019-04-18] MEDS: DOCUSATE SODIUM 100 MG CAPSULE PO SCH ×2 (08:56→20:39)
[2019-04-18] MEDS: FUROSEMIDE 40 MG TABLET PO SCH (08:56)
[2019-04-18] MEDS: GABAPENTIN 100 MG CAPSULE PO SCH ×4 (08:56→20:41)
[2019-04-18] MEDS: GABAPENTIN 300 MG CAPSULE PO SCH ×3 (08:56→17:18)
[2019-04-18] MEDS: POLYVINYL ALCOHOL OPHT DROPS 15 ML BOTTLE EACHEYE SCH ×2 (08:56→17:18)
[2019-04-18] MEDS: FLUTICASONE PROP NASAL SPRAY 16 GM BOTTLE NS SCH (08:56)
[2019-04-18] MEDS: LOSARTAN POTASSIUM 25 MG TABLET PO SCH ×2 (08:57→20:39)
[2019-04-18] MEDS: FOLIC ACID 1 MG TABLET PO SCH (08:57)
[2019-04-18] MEDS: TOPIRAMATE 25 MG TABLET PO SCH (08:58)
[2019-04-18] MEDS: Z GUARD REMEDY PASTE 57 GM TUBE TOP SCH ×2 (09:23→20:46)
[2019-04-18 16:00] VITALS: BP 135/45
--- NOTE | 2019-04-18 18:13 | NUR ---
Patient A & O x 4; able to express needs. No complains of pain throughout shift. IN No acute distress. Pt. on O2 NC at 1lpm with O2 saturation of 98%Vital signs taken and stable. Complaint with care. Patient able to ambulate with a walker and one person assist. Due medications administered as ordered and scheduled and tolerated well. All other needs attended, safety measures in place, call light left at bed side and will continue with care.
[2019-04-18 20:12] VITALS: BP 125/64
[2019-04-18] MEDS: ESCITALOPRAM OXALATE 10 MG TABLET PO SCH (20:40)
[2019-04-18] MEDS: PHENOBARBITAL 32.4 MG TABLET PO SCH (20:41)
[2019-04-18] MEDS: TOPIRAMATE 100 MG TABLET PO SCH (20:42)
[2019-04-18] MEDS: BIMATOPROST 0.01% EACHEYE SCH (20:44)
[2019-04-18] MEDS: PRAMIPEXOLE 1 MG TABLET PO SCH (20:44)
--- NOTE | 2019-04-18 23:42 | NUR ---
awake alert and oriented x2-3 OOB to BR with walker with one assist. Voiding well. assisted back to bed. PM care done. Compliant with meds and care. Tolerated po meds well. Denies any pain nor any discomfort. On O2 @ 1L via nasal cannula, pulse ox 97%. No SOB nor any respiratory distress noted. VSS. Kapt comfortable. Fall precautions maintained. Siderails up for safety.
[2019-04-19] MEDS: IPRATROPIUM BROMIDE 0.5 MG/2.5 ML NEBU NEB SCH ×4 (00:48→20:29)
[2019-04-19 05:40] VITALS: BP 117/66
[2019-04-19] MEDS: PANTOPRAZOLE SODIUM 40 MG TABLET.DR PO SCH (06:24)
[2019-04-19] MEDS: LEVOTHYROXINE SODIUM 50 MCG TABLET PO SCH (06:24)
[2019-04-19] MEDS: LIPASE/PROTEASE/AMYLASE 4200 UNITS CAPSULE.DR PO SCH ×3 (06:31→16:43)
--- NOTE | 2019-04-19 06:50 | NUR ---
slept well most of the shift. no acute distress noted. kept comfortable. VSS. will monitor patient. needs attended. incontinent of urine x2. kept clean and dry. took meds without difficulty.
[2019-04-19 07:38] VITALS: BP 126/52
[2019-04-19] MEDS: POLYVINYL ALCOHOL OPHT DROPS 15 ML BOTTLE EACHEYE SCH ×2 (08:39→16:44)
[2019-04-19] MEDS: FLUTICASONE PROP NASAL SPRAY 16 GM BOTTLE NS SCH (08:39)
[2019-04-19] MEDS: DOCUSATE SODIUM 100 MG CAPSULE PO SCH ×2 (09:33→20:33)
[2019-04-19] MEDS: FUROSEMIDE 40 MG TABLET PO SCH (09:33)
[2019-04-19] MEDS: Z GUARD REMEDY PASTE 57 GM TUBE TOP SCH ×2 (09:33→20:33)
[2019-04-19] MEDS: LOSARTAN POTASSIUM 25 MG TABLET PO SCH ×2 (09:33→20:32)
[2019-04-19] MEDS: FOLIC ACID 1 MG TABLET PO SCH (09:33)
[2019-04-19] MEDS: GABAPENTIN 300 MG CAPSULE PO SCH ×3 (09:33→16:43)
[2019-04-19] MEDS: GABAPENTIN 100 MG CAPSULE PO SCH ×4 (09:33→20:32)
[2019-04-19] MEDS: TOPIRAMATE 25 MG TABLET PO SCH (09:33)
--- NOTE | 2019-04-19 12:37 | NUR ---
Patient continue therapy for ambulation and ADL ability. Continue pain management if needed. not in distress. Continue oxygen therapy via nasal cannula at 1-2LPM. OXY SAT- 96%. no complaint voiced. will continue monitor
[2019-04-19 14:58] VITALS: BP 116/47
[2019-04-19] MEDS: ALBUTEROL SULFATE 1.25 MG/3 ML NEBU NEB PRN (20:30)
[2019-04-19] MEDS: BIMATOPROST 0.01% EACHEYE SCH (20:32)
[2019-04-19] MEDS: PHENOBARBITAL 32.4 MG TABLET PO SCH (20:32)
[2019-04-19] MEDS: ESCITALOPRAM OXALATE 10 MG TABLET PO SCH (20:32)
[2019-04-19] MEDS: PRAMIPEXOLE 1 MG TABLET PO SCH (20:32)
[2019-04-19] MEDS: TOPIRAMATE 100 MG TABLET PO SCH (20:32)
--- NOTE | 2019-04-19 20:42 | NUR ---
Received pt resting in bed and reading a book. AAO x3. Farsi speaking, able to make needs known. No acute distress noted. Saturation of 95% on room air. On routine breathing treatment. Due meds given as ordered. Safety measures maintained. Call light and personal items within reach. Will continue to monitor.
[2019-04-19 20:53] VITALS: BP 130/53
[2019-04-20] MEDS: IPRATROPIUM BROMIDE 0.5 MG/2.5 ML NEBU NEB SCH ×4 (01:30→19:52)
[2019-04-20] MEDS: LEVOTHYROXINE SODIUM 50 MCG TABLET PO SCH (06:14)
[2019-04-20] MEDS: PANTOPRAZOLE SODIUM 40 MG TABLET.DR PO SCH (06:14)
[2019-04-20 06:16] VITALS: BP 128/60
[2019-04-20 08:00] VITALS: BP 135/63
[2019-04-20] MEDS: LIPASE/PROTEASE/AMYLASE 4200 UNITS CAPSULE.DR PO SCH ×3 (08:11→17:47)
[2019-04-20] MEDS: GABAPENTIN 300 MG CAPSULE PO SCH ×2 (09:37→13:55)
[2019-04-20] MEDS: GABAPENTIN 100 MG CAPSULE PO SCH ×2 (09:38→13:55)
[2019-04-20] MEDS: FUROSEMIDE 40 MG TABLET PO SCH (09:38)
[2019-04-20] MEDS: FOLIC ACID 1 MG TABLET PO SCH (09:38)
[2019-04-20] MEDS: LOSARTAN POTASSIUM 25 MG TABLET PO SCH ×2 (09:38→21:18)
[2019-04-20] MEDS: DOCUSATE SODIUM 100 MG CAPSULE PO SCH (09:38)
[2019-04-20] MEDS: POLYVINYL ALCOHOL OPHT DROPS 15 ML BOTTLE EACHEYE SCH ×2 (09:39→17:47)
[2019-04-20] MEDS: FLUTICASONE PROP NASAL SPRAY 16 GM BOTTLE NS SCH (09:39)
[2019-04-20] MEDS: Z GUARD REMEDY PASTE 57 GM TUBE TOP SCH ×2 (09:40→21:19)
[2019-04-20] MEDS: TOPIRAMATE 25 MG TABLET PO SCH (09:41)
[2019-04-20] MEDS: GABAPENTIN 400 MG CAPSULE PO SCH (18:00)
--- NOTE | 2019-04-20 19:43 | NUR ---
Patient sitting on chair right now; Patient A & O x 4; able to express needs. No complains of pain at this time. IN No acute distress. Pt. on O2 NC at 2lpm with O2 saturation of 97%. Vital signs taken and stable. NO new change of condition noted at this time. Patient able to ambulate with a walker and one person assist. Needs attended, safety measures in place, call light left at bed side and will continue with care.
[2019-04-20 19:47] VITALS: BP 133/75
[2019-04-20 20:00] VITALS: BP 123/59
[2019-04-20] MEDS: PRAMIPEXOLE 1 MG TABLET PO SCH (21:18)
[2019-04-20] MEDS: ESCITALOPRAM OXALATE 10 MG TABLET PO SCH (21:18)
[2019-04-20] MEDS: PHENOBARBITAL 32.4 MG TABLET PO SCH (21:18)
[2019-04-20] MEDS: TOPIRAMATE 100 MG TABLET PO SCH (21:18)
[2019-04-20] MEDS: BIMATOPROST 0.01% EACHEYE SCH (21:19)
--- NOTE | 2019-04-20 21:33 | NUR ---
Received pt sitting on the chair. AAO x4. On 1L O2 via NC, no acute distress noted. Denies pain/ discomfort. Assisted pt with ADLs. Pt is now back to bed and reading. Due meds given as ordered. Safety measures maintained. Call light and personal items within reach. Will continue to monitor.
[2019-04-21] MEDS: IPRATROPIUM BROMIDE 0.5 MG/2.5 ML NEBU NEB SCH ×2 (00:32→07:35)
[2019-04-21] MEDS: LEVOTHYROXINE SODIUM 50 MCG TABLET PO SCH (06:02)
[2019-04-21] MEDS: PANTOPRAZOLE SODIUM 40 MG TABLET.DR PO SCH (06:02)
[2019-04-21 06:38] VITALS: BP 144/68
[2019-04-21] MEDS: POLYVINYL ALCOHOL OPHT DROPS 15 ML BOTTLE EACHEYE SCH (08:28)
[2019-04-21] MEDS: LIPASE/PROTEASE/AMYLASE 4200 UNITS CAPSULE.DR PO SCH (08:28)
[2019-04-21] MEDS: FLUTICASONE PROP NASAL SPRAY 16 GM BOTTLE NS SCH (08:28)
[2019-04-21] MEDS: GABAPENTIN 400 MG CAPSULE PO SCH (08:49)
[2019-04-21] MEDS: FUROSEMIDE 40 MG TABLET PO SCH (08:49)
[2019-04-21] MEDS: TOPIRAMATE 25 MG TABLET PO SCH (08:49)
[2019-04-21 08:50] VITALS: BP 109/55
[2019-04-21] MEDS: FOLIC ACID 1 MG TABLET PO SCH (08:50)
[2019-04-21] MEDS: LOSARTAN POTASSIUM 25 MG TABLET PO SCH (08:50)
[2019-04-21] MEDS: Z GUARD REMEDY PASTE 57 GM TUBE TOP SCH (08:54)
[2019-04-21] MEDS ORDERED: SENNOSIDES/DOCUSATE SODIUM TABLET PO SCH (09:00)
--- NOTE | 2019-04-21 10:35 | NUR ---
Patient discharge to home around 1030am via private car with daughter Jaleesa in stable condition TMS was not signed. TMS will do electronically as per MD Macias. Daughter aware, MD davie conrad order instruct with the daughter. not in distress. MD Dawn aware. Patient thankful for the care given.
== END 2019-04-21 10:30 | disposition home health service (06) | DRG 291 ==
PROVIDERS: ADMIT Physical Medicine & Rehabilitation Pain Medicine; ATTEND Physical Medicine & Rehabilitation Pain Medicine
DX: I11.0 Hypertensive heart disease with heart failure (principal); I50.31 Acute diastolic (congestive) heart failure; E87.1 Hypo-osmolality and hyponatremia; G40.909 Epilepsy, unspecified, not intractable, without status epilepticus; Z85.820 Personal history of malignant melanoma of skin; M81.0 Age-related osteoporosis without current pathological fracture; K21.9 Gastro-esophageal reflux disease without esophagitis; R04.0 Epistaxis; Z88.8 Allergy status to other drugs, medicaments and biological substances; Z88.0 Allergy status to penicillin; Z90.710 Acquired absence of both cervix and uterus; Z87.01 Personal history of pneumonia (recurrent); F39 Unspecified mood [affective] disorder; Z88.5 Allergy status to narcotic agent
CPT/HCPCS: 36415; 71045; 83735; 84100; 85025; 94640; A4663; J1940; J2920; J3535; J3590; J7512